=== PATIENT | male | born 1970 | race Two or more races ===

== ENCOUNTER → 2017-09-21 | Emergency (ER) | payer OTHER ==
[~2017-09-21] VITALS: Ht 170.2 cm; Wt 90.7 kg
[~2017-09-21] MED LIST: DICY20TA PO; INTESTINEX680 M1 PO; ZANTAC300 MG PO
== END | disposition home or self-care (01) ==
LOC: ER 18:45
DX: K52.9 Noninfective gastroenteritis and colitis, unspecified (principal)

== ENCOUNTER 2018-08-21 16:57 | Emergency (ER) | payer OTHER ==
[~2018-08-21] VITALS: Ht 177.8 cm; Wt 95.3 kg
== END 2018-08-21 21:09 | disposition home or self-care (01) ==
LOC: ER 16:57
DX: K52.9 Noninfective gastroenteritis and colitis, unspecified (principal)